=== PATIENT | female | born 1995 | race Caucasian/White ===

== ENCOUNTER 2017-08-13 17:35 | Emergency (ER) | payer OTHER ==
[~2017-08-13] VITALS: Ht 154.9 cm; Wt 48.5 kg
[2017-08-13 18:37] VITALS: BP 137/82
== END 2017-08-13 18:38 | disposition home or self-care (01) ==
LOC: M.ERS 17:35
DX: M79.631 Pain in right forearm (principal); F41.9 Anxiety disorder, unspecified